=== PATIENT | male | born 1955 | race Hispanic/Latino ===

== ENCOUNTER 2018-10-25 06:12 | Day surgery (SDC) | payer OTHER ==
[2018-10-23 11:33] VITALS: BP 107/61
[2018-10-23 11:41] LABS: BASOPHILS % (AUTO) 0.7 % (0.0-5.0); EOSINOPHILS % (AUTO) 4.2 % (0.0-8.0); HEMATOCRIT 38.3 % (42-54); LYMPHOCYTES % (AUTO) 38.6 % (21.0-51.0); MEAN CORPUSCULAR HEMOGLOBIN 28.8 pg (27.0-33.0); MEAN CORPUSCULAR VOLUME 87.3 fL (79-99); MONOCYTES % (AUTO) 10.1 % (3.0-13.0); NEUTROPHILS % (AUTO) 46.4 % (40.0-77.0); PLATELET COUNT (AUTO) 158 K/uL (130-400); RED BLOOD CELL COUNT(AUTO) 4.39 MIL/uL (4.50-6.20); RED CELL DISTRIBUTION WIDTH 15.7 % (11.0-15.5); WHITE BLOOD COUNT (AUTO) 8.1 K/uL (4.8-10.8)
[2018-10-23 11:49] LABS: INR 0.97 (0.85-1.15); PARTIAL THROMBOPLASTIN TIME 30.1 SEC (26.3-35.5); PROTHROMBIN TIME 10.2 SEC (9.6-11.6)
[2018-10-23 11:57] LABS: APPEARANCE,URINE Clear (CLEAR); BILIRUBIN,URINE Negative (NEGATIVE); COLOR,URINE Yellow (YELLOW); CREATININE 1.2 mg/dL (0.5-1.5); GLUCOSE, URINE (UA) Negative (NEGATIVE); KETONES,URINE Negative (NEGATIVE); LEUKOCYTE ESTERASE ,URINE Negative (NEGATIVE); NITRATE,URINE Negative (NEGATIVE); OCCULT BLOOD,URINE Negative (NEGATIVE); POTASSIUM 4.4 mmol/L (3.5-5.1); PROTEIN,URINE Negative (NEGATIVE); UROBILINOGEN,URINE 0.2 mg/dL (0.2-1.0)
[~2018-10-25] VITALS: Ht 175.3 cm; Wt 124.6 kg
[2018-10-25] VITALS (10 sets, daily range): BP systolic 106–128; BP diastolic 61–71
[~2018-10-25 06:12] MED LIST: ALLO100T PO; ASPI-555 PO; CARV3.12 PO; FLUT16H NASAL; FURO40TA5 PO; INSU300I3 SQ; ISOS30TA6 PO; LIRA0.6P SQ; LORA10CA9 PO; METF-446 PO; OMEP40CA37 PO; PIOG30TA70 PO; RANI150T7 PO; SACU1TAB PO; SODIUM CHLORIDE 0.9% 500ML 500 ML IV SCH; TURM500C9 PO
[2018-10-25] MEDS ORDERED: SODIUM CHLORIDE 0.9% 1000ML 1,000 ML IV ONE (06:18)
--- NOTE | 2018-10-25 06:45 | NUR ---
ASSESS BRUISING NOTED RIGHT LOWER ABDOMEN.
[2018-10-25] MEDS ORDERED: IOHEXOL-350 50ML VIAL IV ONE ×2 (07:08→08:18)
[2018-10-25] MEDS ORDERED: IOHEXOL 350 MG/ML 100ML INFUS..BTL IV ONE (07:08)
[2018-10-25] MEDS ORDERED: NITROGLYCERIN 5 MG/ML 10 ML VIAL IV ONE (07:08)
[2018-10-25] MEDS ORDERED: LIDOCAINE HCL 2% 20ML ONE (07:08)
[2018-10-25] MEDS ORDERED: BIVALIRUDIN 250 MG/VIAL IV ONE (07:10)
--- NOTE | 2018-10-25 07:14 | NUR ---
TO ITEM PROCESSOR PT TAKEN TO ITEM PROCESSOR VIA BED BY TYREL MULLER. PT STABLE. NO COMPLAINTS MADE.
[2018-10-25] MEDS ORDERED: MIDAZOLAM HCL 1 MG/ML 2ML VIAL ONE (07:26)
[2018-10-25] MEDS ORDERED: SODIUM CHLORIDE 0.9% 1000ML 1,000 ML IV SCH (08:29)
[2018-10-25] MEDS ORDERED: GLUCAGON 1MG KIT 1 MG ML IM PRN (08:30)
[2018-10-25] MEDS ORDERED: DEXTROSE 50%-WATER 50 ML DISP.SYRIN IV PRN (08:30)
[2018-10-25 09:43] LABS: CHOLESTEROL 143 mg/dL (<200); HDL CHOLESTEROL 39 mg/dL (29-71); LDL DIRECT 96 mg/dL (0-99); TRIGLYCERIDES 108 mg/dL (30-200)
[2018-10-25] MEDS ORDERED: INSULIN HUMULIN R 100 UNIT/ML 3ML SQ SCH (11:30)
--- NOTE | 2018-10-25 11:40 | NUR ---
PRESCRIPTION PRESCRIPTION ATORVASTATIN 40 MG ONE PO DAILY #90 REFILLS X3 CALLED IN TO [facility] IN [place]. SPOKE TO REEDERS PHARMACIST [phone]
--- NOTE | 2018-10-25 13:32 | NUR ---
DISCHARGE PT DISCHARGED VIA WHEELCHAIR WITH . PT STABLE. NO COMPLAINTS MADE. CATH SITE TO RIGHT GROIN REMAINS SOFT, DRESSING DRY AND INTACT, NO OOZING NO9 HEMATOMA NOTED. DISCHARGE INSTRUCTIONS GIVEN TO AND PT EARLIER, ALSO DEMONSTRATED TO ON HOW TO MONITOR CATH SITE FOR BLEEDING/HEMATOMA, VERBALIZED UNDERSTANDING. PT VOIDED PRIOR TO DISCHARGE, ASSISTED TO BATHROOM, WAS ABLE TO AMBULATE WITHOUT ANY PROBLEMS. Addendum: 10/25/18 at 1522 by CASSANDRA ALICEA RN RN PT/ INSTRUCTED TO BRING COPY OF CATH DIAGRAM AND H&P THAT WAS PROVIDED TO SLEEP STUDY APPT. VERBALIZED UNDERSTANDING.
== END 2018-10-25 13:32 | disposition home or self-care (01) ==
LOC: DAH 06:12
PROVIDERS: ATTEND Internal Medicine Cardiovascular Disease
DX: I25.10 Atherosclerotic heart disease of native coronary artery without angina pectoris (principal); I34.0 Nonrheumatic mitral (valve) insufficiency; I42.0 Dilated cardiomyopathy; Z68.41 Body mass index [BMI] 40.0-44.9, adult; Z86.73 Personal history of transient ischemic attack (TIA), and cerebral infarction without residual deficits; E66.01 Morbid (severe) obesity due to excess calories; I11.0 Hypertensive heart disease with heart failure; I50.42 Chronic combined systolic (congestive) and diastolic (congestive) heart failure; G47.33 Obstructive sleep apnea (adult) (pediatric)
CPT/HCPCS: 36415 ×2; 71045; 80048; 80061; 81003; 82948 ×2; 85025; 85610; 85730; 93005; 93458; A4606; C1760; C1894 ×2; J1644; J2250; J3490 ×2; J7030; Q9965; Q9967 ×3; 99156; 99157; J0583

== ENCOUNTER 2021-01-26 22:34 | Observation (INO) | payer OTHER ==
[~2021-01-26] VITALS: Ht 175.3 cm; Wt 121.6 kg
[~2021-01-26 22:34] MED LIST changes: -ASPI-555 PO; +ATOR40TA69 PO; +CARV12.511 PO; -CARV3.12 PO; +DAPA10TA PO; +DIGO125T71 PO; +DULA1.5P SQ; +FURO20TA4 PO; -FURO40TA5 PO; +INSU100V37 SQ; -INSU300I3 SQ; -ISOS30TA6 PO; -LIRA0.6P SQ; +METF-444 PO; -METF-446 PO; +MONT10TA32 PO; -OMEP40CA37 PO; -PIOG30TA70 PO; -RANI150T7 PO; +RIVA20TA PO; -SACU1TAB PO; +SACU1TAB7 PO; +SEMA1PEN3 SQ; -SODIUM CHLORIDE 0.9% 500ML 500 ML IV SCH; +SPIR25TA6 PO
[2021-01-26 22:59] VITALS: BP 95/61
[2021-01-26 23:15] LABS: BASOPHILS % (AUTO) 0.3 % (0.0-5.0); EOSINOPHILS % (AUTO) 2.2 % (0.0-8.0); HEMATOCRIT 41.3 % (42-54); LYMPHOCYTES % (AUTO) 28.2 % (21.0-51.0); MEAN CORPUSCULAR HGB CONC 33.7 g/dL (32.0-36.0); MEAN CORPUSCULAR VOLUME 89.2 fL (79-99); MONOCYTES % (AUTO) 7.6 % (3.0-13.0); NEUTROPHILS % (AUTO) 61.2 % (40.0-77.0); PLATELET COUNT (AUTO) 173 K/uL (130-400); RED BLOOD CELL COUNT(AUTO) 4.63 MIL/uL (4.50-6.20); RED CELL DISTRIBUTION WIDTH 13.9 % (11.0-15.5); WHITE BLOOD COUNT (AUTO) 17.6 K/uL (4.8-10.8)
[2021-01-26 23:30] LABS: ABG BASE EXCESS -1.4 mmol/L (-2.0-3.0); ABG HCO3 22.5 mmol/L (21.0-28.0); ABG OXYGEN SATURATION 97.1 % (95.0-99.0); ABG PCO2 36 mmHg (35-48)
[2021-01-26 23:39] LABS: CREATININE 1.8 mg/dL (0.5-1.5); POTASSIUM 4.7 mmol/L (3.5-5.1)
[2021-01-26 23:44] LABS: ALBUMIN 3.5 g/dL (3.5-5.0); BILIRUBIN,TOTAL 0.6 mg/dL (0.2-1.0); CRP QUANTITATIVE 4.9 mg/L (0.00-9.0); MAGNESIUM 1.8 mg/dL (1.80-2.40); TOTAL PROTEIN, SERUM 8.2 g/dL (6.0-8.3)
[2021-01-27] VITALS (8 sets, daily range): BP systolic 93–120; BP diastolic 49–62
[2021-01-27 00:53] LABS: INR 1.27 (0.85-1.15); PROTHROMBIN TIME 13.5 SEC (9.6-11.6)
[2021-01-27 00:54] LABS: PARTIAL THROMBOPLASTIN TIME 37.7 SEC (26.3-35.5)
[2021-01-27 01:01] LABS: APPEARANCE,URINE Clear (CLEAR); BILIRUBIN,URINE Negative (NEGATIVE); COLOR,URINE Yellow (YELLOW); GLUCOSE, URINE (UA) >=1000 mg/dL (NEGATIVE); KETONES,URINE Trace mg/dL (NEGATIVE); LEUKOCYTE ESTERASE ,URINE Negative (NEGATIVE); NITRATE,URINE Negative (NEGATIVE); OCCULT BLOOD,URINE Negative (NEGATIVE); PROTEIN,URINE Trace mg/dL (NEGATIVE)
[2021-01-27 01:14] LABS: BACTERIA,URINE Rare /HPF (None Seen)
[2021-01-27 01:15] LABS: SQUAMOUS EPITHELIAL CELL,UR 0-2 /HPF (0-2)
[2021-01-27] MEDS ORDERED: NITROGLYCERIN 0.4 MG SL TAB SL PRN (02:30)
[2021-01-27] MEDS ORDERED: ACETAMINOPHEN 325 MG TAB PO PRN (02:30)
[2021-01-27] MEDS ORDERED: LACTULOSE 20 GM/30 ML UDCUP PO PRN (02:30)
[2021-01-27] MEDS ORDERED: ONDANSETRON 4MG INJ IV PRN (02:30)
[2021-01-27] MEDS ORDERED: POTASSIUM CHLORIDE 20MEQ/100ML 100 ML IV PRN (02:30)
[2021-01-27] MEDS ORDERED: LIDOCAINE HCL-MPF 1% 2ML VIAL IV PRN (02:30)
[2021-01-27] MEDS ORDERED: POTASSIUM CHLORIDE 10% ELIXIR 20 MEQ/15 ML UDCUP PO PRN (02:30)
[2021-01-27] MEDS: CEFTRIAXONE 1G VIAL IV SCH (02:30)
[2021-01-27] MEDS ORDERED: 0.9%NACL 1000ML 1,000 ML IV SCH (02:30)
[2021-01-27 02:56] LABS: CREATININE 1.5 mg/dL (0.5-1.5); POTASSIUM 3.4 mmol/L (3.5-5.1)
[2021-01-27 03:09] LABS: MAGNESIUM 1.5 mg/dL (1.80-2.40); THYROID STIMULATING HORMONE 1.69 uIU/mL (0.36-3.74)
[2021-01-27 04:50] LABS: BASOPHILS % (AUTO) 0.4 % (0.0-5.0); EOSINOPHILS % (AUTO) 2.8 % (0.0-8.0); LYMPHOCYTES % (AUTO) 37.2 % (21.0-51.0); MEAN CORPUSCULAR HEMOGLOBIN 29.3 pg (27.0-33.0); MEAN CORPUSCULAR HGB CONC 32.8 g/dL (32.0-36.0); MEAN CORPUSCULAR VOLUME 89.2 fL (79-99); NEUTROPHILS % (AUTO) 50.2 % (40.0-77.0); PLATELET COUNT (AUTO) 155 K/uL (130-400); RED BLOOD CELL COUNT(AUTO) 4.37 MIL/uL (4.50-6.20); RED CELL DISTRIBUTION WIDTH 13.9 % (11.0-15.5); WHITE BLOOD COUNT (AUTO) 15.8 K/uL (4.8-10.8)
[2021-01-27 05:03] LABS: LACTATE DEHYDROGENASE 120 U/L (81-234)
[2021-01-27 05:09] LABS: CRP QUANTITATIVE < 2.00 mg/L (0.00-9.0)
[2021-01-27] MEDS: INSULIN HUMULIN R 100 UNIT/ML 3ML SQ SCH ×4 (07:30→21:34)
[2021-01-27] MEDS ORDERED: FLUT16H NASAL (07:55)
[2021-01-27] MEDS ORDERED: OMEP40CA21 PO (07:55)
[2021-01-27] MEDS ORDERED: AEC81 PO (07:55)
[2021-01-27] MEDS ORDERED: CALCIUM GLUC 1GM VIAL IV SCH (08:00)
[2021-01-27] MEDS ORDERED: MAGNESIUM 2GM PREMIX 50ML 50 ML IV PRN (08:00)
[2021-01-27] MEDS ORDERED: [UNRECOGNIZED DRUG - OTHER] (08:20)
[2021-01-27] MEDS ORDERED: AZEL137S11 NS (08:20)
[2021-01-27] MEDS: CALCIUM GLUC 1GM VIAL 1 GM in 0.9%NACL 100ML 100 ML IV SCH (08:52)
[2021-01-27] MEDS: HEPARIN 5,000 UNIT VIAL SQ SCH ×2 (11:32→21:34)
[2021-01-27] MEDS: FAMOTIDINE 20MG TAB PO SCH ×2 (11:32→20:18)
[2021-01-27] MEDS: KCL 20 MEQ ERTAB PO PRN ×2 (14:52→17:20)
[2021-01-27] MEDS: METFORMIN HCL 500 MG TABLET PO SCH (17:19)
[2021-01-27] MEDS: CARVEDILOL 12.5 MG TABLET PO SCH (20:20)
[2021-01-27] MEDS ORDERED: ALLOPURINOL 100 MG TABLET PO SCH (21:00)
[2021-01-27] MEDS ORDERED: FUROSEMIDE 20 MG TABLET PO SCH (21:00)
[2021-01-27] MEDS ORDERED: SACUBITRIL/VALSARTAN 1 EACH TABLET PO SCH (21:00)
[2021-01-27] MEDS ORDERED: ATORVASTATIN 40 MG TABLET PO SCH (21:00)
[2021-01-28] VITALS: BP 99/58
[2021-01-28] MEDS: CEFTRIAXONE 1G VIAL IV SCH (02:51)
[2021-01-28 03:52] VITALS: BP 105/65
[2021-01-28 04:57] LABS: HEMATOCRIT 37.5 % (42-54); MEAN CORPUSCULAR HEMOGLOBIN 28.9 pg (27.0-33.0); MEAN CORPUSCULAR HGB CONC 32.3 g/dL (32.0-36.0); MEAN CORPUSCULAR VOLUME 89.7 fL (79-99); RED BLOOD CELL COUNT(AUTO) 4.18 MIL/uL (4.50-6.20); WHITE BLOOD COUNT (AUTO) 14.6 K/uL (4.8-10.8)
[2021-01-28 05:21] LABS: CREATININE 1.4 mg/dL (0.5-1.5); POTASSIUM 4.5 mmol/L (3.5-5.1)
[2021-01-28] MEDS ORDERED: AMOX-429 PO (07:29)
[2021-01-28] MEDS: INSULIN HUMULIN R 100 UNIT/ML 3ML SQ SCH ×2 (07:30→12:05)
[2021-01-28] MEDS: CALCIUM GLUC 1GM VIAL 1 GM in 0.9%NACL 100ML 100 ML IV SCH (08:00)
[2021-01-28 08:03] VITALS: BP 112/59
[2021-01-28] MEDS ORDERED: SACUBITRIL/VALSARTAN 1 EACH TABLET PO SCH (09:00)
[2021-01-28] MEDS ORDERED: MONTELUKAST SODIUM 10 MG TAB PO SCH (09:00)
[2021-01-28] MEDS ORDERED: DIGOXIN 125 MCG TABLET PO SCH (09:00)
[2021-01-28] MEDS ORDERED: SPIRONOLACTONE 25 MG TAB PO SCH (09:00)
[2021-01-28] MEDS ORDERED: RIVAROXABAN 20 MG TABLET PO SCH (09:00)
[2021-01-28] MEDS ORDERED: FUROSEMIDE 40 MG TABLET PO SCH (09:30)
[2021-01-28] MEDS: CARVEDILOL 12.5 MG TABLET PO SCH (09:51)
[2021-01-28] MEDS: FAMOTIDINE 20MG TAB PO SCH (09:51)
[2021-01-28] MEDS: METFORMIN HCL 500 MG TABLET PO SCH (09:51)
[2021-01-28] MEDS: HEPARIN 5,000 UNIT VIAL SQ SCH (09:59)
[2021-01-28 11:20] VITALS: BP 125/82
[2021-01-30] MEDS ORDERED: FUROSEMIDE 20 MG TABLET PO SCH (09:00)
== END 2021-01-28 16:45 | disposition home or self-care (01) ==
LOC: EDH 22:34 → EDHIP 01-27 02:02 → 3DH 01-27 09:56
PROVIDERS: ADMIT Internal Medicine Critical Care Medicine; ATTEND Internal Medicine Critical Care Medicine
DX: R07.89 Other chest pain (principal); Z20.822 Contact with and (suspected) exposure to COVID-19; I13.0 Hypertensive heart and chronic kidney disease with heart failure and stage 1 through stage 4 chronic kidney disease, or unspecified chronic kidney disease; I50.42 Chronic combined systolic (congestive) and diastolic (congestive) heart failure; N18.9 Chronic kidney disease, unspecified; N17.9 Acute kidney failure, unspecified; D72.829 Elevated white blood cell count, unspecified; I42.8 Other cardiomyopathies; E11.22 Type 2 diabetes mellitus with diabetic chronic kidney disease; E11.65 Type 2 diabetes mellitus with hyperglycemia; E66.01 Morbid (severe) obesity due to excess calories; E83.42 Hypomagnesemia; E83.51 Hypocalcemia; G47.30 Sleep apnea, unspecified; I25.110 Atherosclerotic heart disease of native coronary artery with unstable angina pectoris; I42.0 Dilated cardiomyopathy; I34.0 Nonrheumatic mitral (valve) insufficiency; I48.0 Paroxysmal atrial fibrillation; Z86.16 Personal history of COVID-19; Z79.01 Long term (current) use of anticoagulants; Z79.4 Long term (current) use of insulin; Z79.82 Long term (current) use of aspirin; Z79.899 Other long term (current) drug therapy; Z95.810 Presence of automatic (implantable) cardiac defibrillator; Z98.61 Coronary angioplasty status; Z68.39 Body mass index [BMI] 39.0-39.9, adult
CPT/HCPCS: 36415 ×3; 36600; 71045; 71250; 80048 ×2; 80053; 80061; 81001; 82550 ×3; 82728; 82803; 82948 ×6; 83036; 83605 ×2; 83615; 83735 ×3; 83874 ×2; 83880; 84145; 84439; 84443; 84484 ×3; 85025 ×2; 85027; 85378; 85610; 85730; 86140 ×2; 87040 ×2; 87635; 87804 ×2; 87880; 93005 ×2; 96361; 96365; 96366; 96372 ×2; 96375; 96376; 99285; C9803; G0378 ×38; J0610; J0696 ×2; J1644 ×3; J1815; J3475

== ENCOUNTER 2021-12-05 07:51 | Inpatient (IN) | payer OTHER ==
[~2021-12-05] VITALS: Ht 175.3 cm; Wt 111.5 kg
[~2021-12-05 07:51] MED LIST changes: +AEC81 PO; +AMOX-429 PO; +AZEL137S11 NS; +MONT-39 PO; -MONT10TA32 PO; +OMEP40CA21 PO
[2021-12-05 09:01] LABS: BASOPHILS % (AUTO) 0.5 % (0.0-5.0); EOSINOPHILS % (AUTO) 3.6 % (0.0-8.0); LYMPHOCYTES % (AUTO) 36.6 % (21.0-51.0); MEAN CORPUSCULAR HEMOGLOBIN 29.3 pg (27.0-33.0); MEAN CORPUSCULAR HGB CONC 33.5 g/dL (32.0-36.0); MEAN CORPUSCULAR VOLUME 87.4 fL (79-99); MONOCYTES % (AUTO) 9.2 % (3.0-13.0); NEUTROPHILS % (AUTO) 49.8 % (40.0-77.0); PLATELET COUNT (AUTO) 166 K/uL (130-400); RED BLOOD CELL COUNT(AUTO) 4.92 MIL/uL (4.50-6.20); RED CELL DISTRIBUTION WIDTH 14.1 % (11.0-15.5); WHITE BLOOD COUNT (AUTO) 11.7 K/uL (4.8-10.8)
[2021-12-05 09:12] LABS: CREATININE 1.3 mg/dL (0.5-1.5); POTASSIUM 4.4 mmol/L (3.5-5.1)
[2021-12-05 09:15] LABS: INR 0.97 (0.85-1.15); PROTHROMBIN TIME 10.6 SEC (9.6-11.6)
[2021-12-05 09:16] LABS: PARTIAL THROMBOPLASTIN TIME 31.1 SEC (26.3-35.5)
[2021-12-05 09:17] LABS: ALBUMIN 3.4 g/dL (3.5-5.0); TOTAL PROTEIN, SERUM 7.9 g/dL (6.0-8.3)
[2021-12-05 09:22] LABS: APPEARANCE,URINE CLEAR (CLEAR); BILIRUBIN,URINE NEGATIVE (NEGATIVE); COLOR,URINE YELLOW (YELLOW); GLUCOSE, URINE (UA) >=1000 mg/dL (NEGATIVE); KETONES,URINE NEGATIVE (NEGATIVE); LEUKOCYTE ESTERASE ,URINE NEGATIVE (NEGATIVE); NITRATE,URINE NEGATIVE (NEGATIVE); OCCULT BLOOD,URINE NEGATIVE (NEGATIVE); PROTEIN,URINE NEGATIVE (NEGATIVE); UROBILINOGEN,URINE 0.2 mg/dL (0.2-1.0)
[2021-12-05 09:31] LABS: BACTERIA,URINE None Seen /HPF (None Seen); RBC,URINE None Seen /HPF (0-1); SQUAMOUS EPITHELIAL CELL,UR 0-2 /HPF (0-2); WBC,URINE None Seen /HPF (0-1)
[2021-12-05] MEDS ORDERED: MORPHINE 4 MG SYG IVP ONE (11:30)
[2021-12-05] MEDS ORDERED: ONDANSETRON 4MG INJ IVP PRN (20:00)
[2021-12-05] MEDS ORDERED: HYDROMORPHONE 0.5 MG SYG (0.5MG/0.5ML) IVP ONE (20:00)
[2021-12-05] MEDS ORDERED: ONDANSETRON 4MG INJ IVP ONE (20:00)
[2021-12-05] MEDS ORDERED: ACETAMINOPHEN 325 MG TAB PO PRN (20:30)
[2021-12-05] MEDS ORDERED: HYDROCODONE/ACETAMINOPHEN 5/325 MG TAB PO PRN (20:30)
[2021-12-05] MEDS: HEPARIN 5,000 UNIT VIAL SQ SCH (20:33)
[2021-12-06] MEDS: HYDROMORPHONE 1 MG INJ IV PRN ×2 (01:51→11:11)
[2021-12-06 02:37] VITALS: BP 117/72
[2021-12-06 05:03] LABS: BASOPHILS % (AUTO) 0.5 % (0.0-5.0); EOSINOPHILS % (AUTO) 2.4 % (0.0-8.0); HEMATOCRIT 44.2 % (42-54); LYMPHOCYTES % (AUTO) 34.6 % (21.0-51.0); MEAN CORPUSCULAR HEMOGLOBIN 28.3 pg (27.0-33.0); MEAN CORPUSCULAR HGB CONC 31.9 g/dL (32.0-36.0); MEAN CORPUSCULAR VOLUME 88.8 fL (79-99); MONOCYTES % (AUTO) 8.4 % (3.0-13.0); NEUTROPHILS % (AUTO) 53.9 % (40.0-77.0); PLATELET COUNT (AUTO) 177 K/uL (130-400); RED BLOOD CELL COUNT(AUTO) 4.98 MIL/uL (4.50-6.20); RED CELL DISTRIBUTION WIDTH 14.1 % (11.0-15.5); WHITE BLOOD COUNT (AUTO) 12.8 K/uL (4.8-10.8)
[2021-12-06 05:20] LABS: CREATININE 1.6 mg/dL (0.5-1.5); MAGNESIUM 1.9 mg/dL (1.80-2.40); PHOSPHORUS 3.9 mg/dL (2.5-4.9)
[2021-12-06 05:25] LABS: HEMOGLOBIN A1C 10.1 % (4.0-6.0)
[2021-12-06 07:11] VITALS: BP 119/60
[2021-12-06] MEDS: INSULIN HUMULIN R 100 UNIT/ML 3ML SQ SCH ×4 (07:30→20:22)
[2021-12-06] MEDS: FAMOTIDINE 20MG VIAL IV SCH (11:02)
[2021-12-06] MEDS: HEPARIN 5,000 UNIT VIAL SQ SCH (11:03)
[2021-12-06] MEDS: MONTELUKAST SODIUM 4 MG TAB.CHEW PO SCH (11:03)
[2021-12-06] MEDS: LORATADINE 10 MG TABLET PO SCH ×2 (11:03→21:58)
[2021-12-06] MEDS: FLUTICASONE PROPIONATE 50MCG/SPRAY 16 GM BOTTLE EN SCH (11:04)
[2021-12-06 12:02] VITALS: BP 120/67
[2021-12-06] MEDS ORDERED: HYDROMORPHONE 0.5 MG SYG (0.5MG/0.5ML) IVP PRN (15:30)
[2021-12-06] MEDS: HYDROMORPHONE 1 MG INJ IVP PRN (15:53)
[2021-12-06 16:04] VITALS: BP 122/53
[2021-12-06] MEDS ORDERED: ERGO500093 PO (16:35)
[2021-12-06] MEDS ORDERED: METF-446 PO (16:35)
[2021-12-06] MEDS ORDERED: AMOX1TAB15 PO (16:35)
[2021-12-06] MEDS ORDERED: EMPA10TA PO (16:35)
[2021-12-06] MEDS ORDERED: FURO40TA5 PO (16:35)
[2021-12-06] MEDS ORDERED: [UNRECOGNIZED DRUG - REMARK] MISC SCH (17:00)
[2021-12-06 20:18] VITALS: BP 133/59
[2021-12-06] MEDS ORDERED: AZELASTINE HCL 137 MCG PO SCH (21:00)
[2021-12-06] MEDS ORDERED: SACUBITRIL/VALSARTAN 1 EACH TABLET PO SCH (21:00)
[2021-12-06] MEDS: CARVEDILOL 12.5 MG TABLET PO SCH (21:58)
[2021-12-06] MEDS: ALLOPURINOL 100 MG TABLET PO SCH (21:58)
[2021-12-06] MEDS: ATORVASTATIN 40 MG TABLET PO SCH (21:58)
[2021-12-07] MEDS: HYDROMORPHONE 1 MG INJ IVP PRN ×2 (00:11→08:21)
[2021-12-07 00:36] VITALS: BP 122/61
[2021-12-07 04:10] VITALS: BP_SYST 115; BP_SYST 145; BP_DIAS 56; BP_DIAS 65
[2021-12-07 05:17] LABS: BASOPHILS % (AUTO) 0.4 % (0.0-5.0); EOSINOPHILS % (AUTO) 3.1 % (0.0-8.0); HEMATOCRIT 45.2 % (42-54); MEAN CORPUSCULAR VOLUME 87.9 fL (79-99); MONOCYTES % (AUTO) 9.3 % (3.0-13.0); NEUTROPHILS % (AUTO) 56.9 % (40.0-77.0); PLATELET COUNT (AUTO) 181 K/uL (130-400); RED BLOOD CELL COUNT(AUTO) 5.14 MIL/uL (4.50-6.20); RED CELL DISTRIBUTION WIDTH 13.8 % (11.0-15.5); WHITE BLOOD COUNT (AUTO) 14.3 K/uL (4.8-10.8)
[2021-12-07 05:33] LABS: ALBUMIN 3.5 g/dL (3.5-5.0); CREATININE 1.5 mg/dL (0.5-1.5); TOTAL PROTEIN, SERUM 8.2 g/dL (6.0-8.3)
[2021-12-07] MEDS: INSULIN HUMULIN R 100 UNIT/ML 3ML SQ SCH ×4 (05:38→21:00)
[2021-12-07] MEDS ORDERED: SACU1TAB7 PO (06:44)
[2021-12-07 07:07] VITALS: BP 109/51
[2021-12-07] MEDS: FAMOTIDINE 20MG VIAL IV SCH (08:17)
[2021-12-07] MEDS: LORATADINE 10 MG TABLET PO SCH ×2 (08:17→21:25)
[2021-12-07] MEDS: MONTELUKAST SODIUM 10 MG TAB PO SCH (08:19)
[2021-12-07] MEDS: CARVEDILOL 12.5 MG TABLET PO SCH ×2 (08:19→21:25)
[2021-12-07] MEDS: ASPIRIN 81 MG EC TAB PO SCH (08:20)
[2021-12-07] MEDS: FUROSEMIDE 40 MG TABLET PO SCH (08:20)
[2021-12-07] MEDS: SPIRONOLACTONE 25 MG TAB PO SCH (08:20)
[2021-12-07] MEDS: MONTELUKAST SODIUM 4 MG TAB.CHEW PO SCH (09:00)
[2021-12-07] MEDS ORDERED: RIVAROXABAN 20 MG TABLET PO SCH (09:00)
[2021-12-07] MEDS: FLUTICASONE PROPIONATE 50MCG/SPRAY 16 GM BOTTLE EN SCH (09:23)
[2021-12-07] MEDS: SACUBITRIL/VALSARTAN 1 EACH TABLET PO SCH ×2 (09:23→21:25)
[2021-12-07] MEDS: AZELASTINE 137 MCG NASAL SCH (09:24)
[2021-12-07] MEDS ORDERED: VANCOMYCIN 1G VIAL IVPB SCH (12:00)
[2021-12-07] MEDS ORDERED: 0.9% NACL 250ML IV SCH (12:00)
[2021-12-07] MEDS ORDERED: PHARMACY COMMUNICATION MISC SCH ×2 (12:00)
[2021-12-07] MEDS ORDERED: PROCHLORPERAZINE 10MG/2ML INJ IV PRN (12:00)
[2021-12-07] MEDS ORDERED: KETOROLAC 30MG VIAL (30MG/ML) IM PRN (12:00)
[2021-12-07] MEDS ORDERED: DiphenhydrAMINE HCL 50 MG/ML VIAL IV PRN (12:00)
[2021-12-07] MEDS ORDERED: BUTALB/ACETAMINOPHEN/CAFFEINE 1 EACH TABLET PO PRN (12:00)
[2021-12-07 12:06] VITALS: BP 92/54
[2021-12-07] MEDS ORDERED: AMPICILLIN 2GM+NS 100ML 100 ML IV SCH (13:00)
[2021-12-07] MEDS ORDERED: COMPOUND IV MISC 1 EACH IVSOLN MISC PRN (13:00)
[2021-12-07] MEDS ORDERED: VANCOMYCIN 1.25 GM/250 ML BAG 250 ML IV SCH (13:00)
[2021-12-07] MEDS: CEFEPIME HCL 2 GM VIAL IVP SCH ×2 (13:30→20:54)
[2021-12-07] MEDS ORDERED: NACL 0.9% IV SCH (15:00)
[2021-12-07] MEDS ORDERED: ACYCLOVIR IV SCH (15:00)
[2021-12-07] MEDS ORDERED: AMPICILLIN 2GM+NS 100ML IV SCH (16:00)
[2021-12-07 16:04] VITALS: BP 98/58
[2021-12-07] MEDS ORDERED: KETOROLAC 30MG VIAL (30MG/ML) IV PRN (18:00)
[2021-12-07 19:00] VITALS: BP 107/49
[2021-12-07] MEDS ORDERED: TOPIRAMATE 25 MG TABLET PO SCH (21:00)
[2021-12-07] MEDS: ATORVASTATIN 40 MG TABLET PO SCH (21:25)
[2021-12-07] MEDS: ALLOPURINOL 100 MG TABLET PO SCH (21:25)
[2021-12-08] VITALS: BP 121/54
[2021-12-08 04:00] VITALS: BP 94/45
[2021-12-08] MEDS: CEFEPIME HCL 2 GM VIAL IVP SCH ×2 (04:39→12:06)
[2021-12-08] MEDS: INSULIN HUMULIN R 100 UNIT/ML 3ML SQ SCH ×2 (06:35→12:07)
[2021-12-08 07:15] VITALS: BP 124/59
[2021-12-08] MEDS ORDERED: FLUTICASONE PROPIONATE 50MCG/SPRAY 16 GM BOTTLE EN SCH (09:00)
[2021-12-08] MEDS: FUROSEMIDE 40 MG TABLET PO SCH (09:17)
[2021-12-08] MEDS: MONTELUKAST SODIUM 10 MG TAB PO SCH (09:17)
[2021-12-08] MEDS: SPIRONOLACTONE 25 MG TAB PO SCH (09:17)
[2021-12-08] MEDS: ASPIRIN 81 MG EC TAB PO SCH (09:17)
[2021-12-08] MEDS: CARVEDILOL 12.5 MG TABLET PO SCH (09:18)
[2021-12-08] MEDS: FAMOTIDINE 20MG VIAL IV SCH (09:18)
[2021-12-08] MEDS: AZELASTINE 137 MCG NASAL SCH (09:18)
[2021-12-08] MEDS: SACUBITRIL/VALSARTAN 1 EACH TABLET PO SCH (09:33)
[2021-12-08 11:15] VITALS: BP 96/45
[2021-12-08] MEDS ORDERED: TOPI25TA42 PO (11:29)
[2021-12-08] MEDS ORDERED: Butalb/Acetaminophen/Caffeine PO (11:29)
== END 2021-12-08 12:30 | disposition home or self-care (01) | DRG 103 ==
LOC: EDH 07:51 → INTOOBSV 20:03 → OBSVTOIN 20:03 → EDHIP 20:03 → 3DH 12-06 01:51
PROVIDERS: ADMIT Internal Medicine; ATTEND Internal Medicine
DX: G43.001 Migraine without aura, not intractable, with status migrainosus (principal); I13.0 Hypertensive heart and chronic kidney disease with heart failure and stage 1 through stage 4 chronic kidney disease, or unspecified chronic kidney disease; I50.22 Chronic systolic (congestive) heart failure; I42.0 Dilated cardiomyopathy; E11.65 Type 2 diabetes mellitus with hyperglycemia; J30.2 Other seasonal allergic rhinitis; N18.9 Chronic kidney disease, unspecified; G47.33 Obstructive sleep apnea (adult) (pediatric); E11.22 Type 2 diabetes mellitus with diabetic chronic kidney disease; I48.0 Paroxysmal atrial fibrillation; I49.3 Ventricular premature depolarization; Z95.810 Presence of automatic (implantable) cardiac defibrillator; Z79.01 Long term (current) use of anticoagulants; J34.1 Cyst and mucocele of nose and nasal sinus
CPT/HCPCS: 36415; 70450; 70544; 70547; 70551; 74018; 80048; 80053; 81001; 82948; 83036; 83735; 84100; 85025; 85610; 85730; 87804; 93005; G0378; J0133; J0290; J0692; J1170; J1200; J1644; J1815; J1885; J2270; J2405; J3490; J7050